=== PATIENT | male | born 1980 ===

== ENCOUNTER 2023-12-29 15:29 | Outpatient (REF) | payer OTHER, SELFPAY | END 2023-12-29 15:30 | disposition home or self-care (01) | LOC: HO.SH 15:29 | PROVIDERS: PCP Internal Medicine Cardiovascular Disease; Visit Provider Internal Medicine Cardiovascular Disease | DX: Z01.118 Encounter for examination of ears and hearing with other abnormal findings (principal); H90.3 Sensorineural hearing loss, bilateral; H93.12 Tinnitus, left ear | CPT/HCPCS: 92557 ==